=== PATIENT | male | born 1965 | race African-American/Black ===

== ENCOUNTER → 2018-12-01 | Outpatient (CLI) | payer OTHER ==
--- NOTE | 2018-12-01 14:12 | CARD ---
MR#: [id number] Date of Study: 12/01/2018 Ordering Physician: VIKRAM MORTENSEN, Referring Physician: VIKRAM MORTENSEN, Tech: Nayely Mills RDCS APPROVED REPORT INDICATION Dyspnea RISK FACTORS Hypertension Obesity Reason : Patient complained of shortness of breath PROCEDURE The patient underwent an Exercise Stress Test using the Saad Protocol. Blood pressure, heart rate, a nd EKG were monitored. An Echocardiogram was performed by drain technician in four stages in quad fashion. At peak stress four se lected images were obtained and placed side by side with resting images for comparison. STRESS ECHO FINDINGS The resting Echocardiogram showed normal left ventricular systolic contractility with an estimated Ej ection Fraction of about 60 %. The Resting Echocardiogram showed normal augmentation of myocardial wall segments using a 16 segment model. The Stress Echocardiogram showed normal augmentation of myocardial wall segments using a 16 segment m alney. The Stress Echocardiogram left ventricular systolic contractility has an estimated Ejection Fraction of about 70%. Test Type: Exercise Stress Nurse/Tech: Karli Mayer RN Test Indications: Dyspnea Cardiac History and Allergies: Hypertension Medications: see EMR Medical History: see EMR Resting ECG: SR with BBB Resting Heart Rate: 63 bpm Resting Blood Pressure: 159/83mmHg Pretest Chest Pain: No chest pain Nurse/Tech Notes S1, S2 and lungs clear to auscultation. Stress Symptoms Dyspnea,Fatigue POST EXERCISE Reason for Termination: Dyspnea Target HR: No Max HR: 130 bpm 77% of Maximum Predicted HR: 169 bpm Exercise duration: 8:43 min:sec, 3 Stage Exercise capacity: 10.1METs Max Blood Pressure: 170/85mmHg Blood Pressure response to exercise: Normal blood pressure response during stress. Heart Rate response to exercise: WNL Chest Pain: No. Arrhythmia: No. ST Change: Yes. slight ST depression in leads V4 and V5 during exercise which returned to baseline by the end of the test STRESS ECG Stress EKG shows no significant changes. Preliminary Notification Critical Value: No <Conclusion> Normal exercise capacity with 10 metabolic equivalents achieved with a normal blood pressure response and heart rate response. Normal resting echocardiogram and ejection fraction at 60%. Normal augmentation with stress with ejection fraction greater than 70% and normal wall motion. Low risk study. Signed by : Vikram Mortensen, Electronically Approved : 12/01/2018 14:12:03
== END | disposition home or self-care (01) ==
LOC: ECHO 12:36
PROVIDERS: ATTEND Internal Medicine Cardiovascular Disease
DX: R06.00 Dyspnea, unspecified (principal); I10 Essential (primary) hypertension; E66.9 Obesity, unspecified
CPT/HCPCS: 93017; 93350